=== PATIENT | female | born 1955 | race African-American/Black ===

== ENCOUNTER 2017-08-14 16:27 | Inpatient (IN) | payer MEDICAID ==
[~2017-08-14] VITALS: Ht 157.5 cm; Wt 111.1 kg
[~2017-08-14 16:27] MED LIST: ALEN70SO3 PO; AMIT-188 PO; BENA20TA3 PO; CALC-1042 PO; CHOL500010 PO; FLUT1DIS3 INH; GABA-533 PO; HYDR25TA PO; LEVVL SQ; METF500T4 PO; PARO-41 PO; SAXA5TAB PO; TRAM50TA3 PO
[2017-08-14] MEDS ORDERED: MAGNESIUM/ALUMINUM HYDROXIDE/SIMETHICONE 30ML UDC PO STA (18:58)
[2017-08-14] MEDS ORDERED: VISCOUS LIDOCAINE 2% 15 ML UDC MM ONE (19:00)
[2017-08-14 19:26] LABS: BASOPHILS % 1.2 % (0.0-2.0); EOSINOPHILS % 2.3 % (0.0-5.0); HEMATOCRIT. 40.4 % (36.0-48.0); HEMOGLOBIN. 12.8 g/dL (12.0-16.0); LYMPHOCYTES % 41.1 % (20.0-50.0); MEAN CORPUSCULAR HEMOGLOBIN 26.4 pg (28.0-32.0); MEAN CORPUSCULAR VOLUME 83.3 fL (81.0-99.0); MEAN PLATELET VOLUME 10.6 fl (7.4-10.4); MONOCYTES % 6.5 % (2.0-8.0); NEUTROPHILS % 48.9 % (40.0-76.0); PLATELET 173 x1000/uL (130-400); RED BLOOD CELL COUNT 4.84 mill/uL (4.2-5.4); RED CELL DISTRIBUTION WIDTH 16.8 % (11.6-14.6)
[2017-08-14 19:29] LABS: CLARITY URINE CLEAR (CLEAR); COLOR URINE YELLOW (YELLOW); GLUCOSE URINE NEGATIVE (NEGATIVE); KETONES URINE NEGATIVE (NEGATIVE); LEUKOCYTE ESTERASE URINE NEGATIVE (NEGATIVE); NITRITE URINE NEGATIVE (NEGATIVE); OCCULT BLOOD URINE NEGATIVE (NEGATIVE); PROTEIN URINE NEGATIVE (NEGATIVE); SPECIFIC GRAVITY URINE 1.011 (1.005-1.030); UROBILINOGEN URINE 0.2 E.U./dL (0.2-1.0)
[2017-08-14 19:38] LABS: CARBON DIOXIDE 30 mEq/L (21-32); CHLORIDE 106 mEq/L (98-107); TROPONIN I < 0.02 ng/mL (0.00-0.04)
[2017-08-14 19:39] LABS: INR 0.9; PARTIAL THROMBOPLASTIN TIME 27.3 sec (23.4-31.0); PROTHROMBIN TIME 9.8 sec (9.4-11.6)
[2017-08-14] MEDS ORDERED: MORPHINE SULFATE 4 MG/ML CPJ (NOT FOR IM USE) IV ONE (22:45)
[2017-08-14] MEDS ORDERED: ONDANSETRON HCL 4MG/2ML VIAL IV ONE (22:45)
[2017-08-14] MEDS ORDERED: SODIUM CHLORIDE 0.9% 1,000 ML IV ONE (22:45)
[2017-08-14] MEDS ORDERED: MORPHINE SULFATE 10 MG/ML CPJ IV NR (23:00)
[2017-08-14 23:55] VITALS: BP 137/80
[2017-08-14] MEDS ORDERED: INSU100I24 SQ (23:55)
[2017-08-14] MEDS ORDERED: LANS30CA55 PO (23:55)
[2017-08-14] MEDS ORDERED: METO-293 PO (23:55)
[2017-08-14] MEDS ORDERED: INSU100I13 SQ (23:55)
[2017-08-14] MEDS ORDERED: FLUN8.9H IH (23:55)
[2017-08-14] MEDS ORDERED: ALBU18HF2 IH (23:55)
[2017-08-14] MEDS ORDERED: CIME300T PO (23:55)
[2017-08-14] MEDS ORDERED: BENA20TA3 PO (23:55)
[2017-08-14] MEDS ORDERED: AMMO240L2 TP (23:58)
[2017-08-14] MEDS ORDERED: KETO15CR2 TP (23:58)
[2017-08-15 00:45] VITALS: BP 137/80
[2017-08-15] MEDS ORDERED: ONDANSETRON HCL 4MG/2ML VIAL IV PRN (01:30)
[2017-08-15] MEDS ORDERED: DEXTROSE 50% WATER 50ML SYRINGE IV PRN (01:30)
[2017-08-15] MEDS ORDERED: IPRATROPIUM/ALBUTEROL 0.5-3(2.5)MG/3ML NEB HHN PRN (01:45)
[2017-08-15] MEDS: MORPHINE SULFATE 2 MG/ML CPJ (NOT FOR IM USE) IV PRN ×2 (03:27→09:31)
[2017-08-15 04:00] VITALS: BP 107/65
[2017-08-15] MEDS ORDERED: DEXT 5%/0.45% NACL KCL 20MEQ/L 1,000 ML IV SCH (04:00)
[2017-08-15] MEDS: BLOOD SUGAR DIAGNOSTIC STRIP TEST SCH ×2 (06:35→13:04)
[2017-08-15] MEDS: INSULIN LISPRO 100 UNITS/ML SUBCUT SCH ×2 (07:02→12:50)
[2017-08-15 07:03] LABS: BASOPHILS % 0.4 % (0.0-2.0); EOSINOPHILS % 1.7 % (0.0-5.0); HEMATOCRIT. 37.3 % (36.0-48.0); HEMOGLOBIN. 11.9 g/dL (12.0-16.0); LYMPHOCYTES % 45.7 % (20.0-50.0); MEAN CORPUSCULAR HEMOGLOBIN 26.4 pg (28.0-32.0); MEAN CORPUSCULAR VOLUME 82.9 fL (81.0-99.0); MEAN PLATELET VOLUME 11.1 fl (7.4-10.4); MONOCYTES % 5.8 % (2.0-8.0); NEUTROPHILS % 46.4 % (40.0-76.0); PLATELET 163 x1000/uL (130-400); RED CELL DISTRIBUTION WIDTH 16.8 % (11.6-14.6)
[2017-08-15 07:49] LABS: CARBON DIOXIDE 30 mEq/L (21-32); CHLORIDE 105 mEq/L (98-107)
[2017-08-15 08:00] VITALS: BP 112/65
[2017-08-15] MEDS ORDERED: PANTOPRAZOLE SODIUM 40 MG/VIAL IV SCH (09:00)
[2017-08-15 12:00] VITALS: BP 105/49
[2017-08-15 16:00] VITALS: BP 105/49
[2017-08-15 18:09] VITALS: BP 105/49
[2017-08-15] MEDS ORDERED: OMEP40CA34 PO (18:16)
== END 2017-08-15 18:55 | disposition home or self-care (01) | DRG 241 ==
LOC: ER 16:39 → ENRESERV 22:54 → 6EST 08-15 00:27
PROVIDERS: ADMIT Internal Medicine; ATTEND Internal Medicine
DX: K25.3 Acute gastric ulcer without hemorrhage or perforation (principal); E11.22 Type 2 diabetes mellitus with diabetic chronic kidney disease; K85.90 Acute pancreatitis without necrosis or infection, unspecified; I11.0 Hypertensive heart disease with heart failure; I50.32 Chronic diastolic (congestive) heart failure; Z88.0 Allergy status to penicillin; E11.40 Type 2 diabetes mellitus with diabetic neuropathy, unspecified; Z88.6 Allergy status to analgesic agent; J44.9 Chronic obstructive pulmonary disease, unspecified; F17.210 Nicotine dependence, cigarettes, uncomplicated; F32.9 Major depressive disorder, single episode, unspecified; E66.01 Morbid (severe) obesity due to excess calories; M19.90 Unspecified osteoarthritis, unspecified site; Z79.4 Long term (current) use of insulin; Z68.41 Body mass index [BMI] 40.0-44.9, adult
CPT/HCPCS: 36415; 71010; 76705; 80048; 80053; 81003; 82962; 83690; 84484; 85025; 85610; 85730; 93005; 96374; 96375; 99285; 99406; C1893; C9113; J2270; J2405; J7030

== ENCOUNTER 2020-06-12 16:48 | Emergency (ER) | payer OTHER, MEDICAID ==
[~2020-06-12] VITALS: Ht 167.6 cm; Wt 90.0 kg
[~2020-06-12 16:48] MED LIST changes: +ALBU18HF2 IH; +AMMO240L2 TP; +BENA20TA10 PO; -BENA20TA3 PO; +FLUN8.9H IH; -GABA-533 PO; +INSU100I13 SQ; +INSU100I24 SQ; +KETO15CR2 TP; +LANS30CA55 PO; +METF-414 PO; -METF500T4 PO; +OMEP40CA12 PO; -TRAM50TA3 PO
[2020-06-12 17:40] LABS: BASOPHILS % 1.7 % (0.0-2.0); EOSINOPHILS % 1.5 % (0.0-5.0); HEMATOCRIT. 38.5 % (36.0-48.0); HEMOGLOBIN. 12.2 g/dL (12.0-16.0); LYMPHOCYTES % 40.7 % (20.0-50.0); MEAN CORPUSCULAR HEMOGLOBIN 26.6 pg (28.0-32.0); MEAN PLATELET VOLUME 11.2 fl (7.4-10.4); MONOCYTES % 6.1 % (2.0-8.0); PLATELET 153 x1000/uL (130-400); RED BLOOD CELL COUNT 4.58 mill/uL (4.2-5.4); RED CELL DISTRIBUTION WIDTH 15.6 % (11.6-14.6)
[2020-06-12 17:46] LABS: CHLORIDE 111 mEq/L (98-107)
[2020-06-12] MEDS ORDERED: PREDNISONE 20MG TABLET PO ONE (20:15)
[2020-06-12] MEDS ORDERED: MORPHINE SULFATE 4 MG/ML CPJ (NOT FOR IM USE) IV ONE (20:15)
[2020-06-12] MEDS ORDERED: ALBUTEROL 6.7GM HFA INHALER ORI ONE (20:15)
[2020-06-12] MEDS ORDERED: MORPHINE SULFATE 4 MG/ML CPJ (NOT FOR IM USE) IV NR (21:15)
[2020-06-12] MEDS ORDERED: PREDNISONE 20MG TABLET PO NR (21:15)
[2020-06-12] MEDS ORDERED: KETOROLAC 15MG/ML VIAL IV ONE (21:30)
[2020-06-12 22:00] VITALS: BP 139/83
== END 2020-06-12 22:39 | disposition home or self-care (01) ==
LOC: ER 16:48
DX: S06.0X9A Concussion with loss of consciousness of unspecified duration, initial encounter (principal); T14.8XXA Other injury of unspecified body region, initial encounter; I11.0 Hypertensive heart disease with heart failure; I50.9 Heart failure, unspecified; J44.9 Chronic obstructive pulmonary disease, unspecified; J45.909 Unspecified asthma, uncomplicated; W22.8XXA Striking against or struck by other objects, initial encounter; Y93.89 Activity, other specified; Y92.512 Supermarket, store or market as the place of occurrence of the external cause; E11.9 Type 2 diabetes mellitus without complications
CPT/HCPCS: 36415; 70450; 71045; 80053; 83880; 84484; 85025; 93005; 94640; 96374; 99285; J1885; J7512; J2270